=== PATIENT | female | born 1940 | race Caucasian/White ===

== ENCOUNTER → 2023-10-30 11:34 | Outpatient (REF) | payer MEDICARE, BC, SELFPAY | LOC: RAD 11:34 | PROVIDERS: ATTENDING PHYSICIAN Nurse Practitioner Family | DX: R06.02 Shortness of breath (principal); R09.89 Other specified symptoms and signs involving the circulatory and respiratory systems | CPT/HCPCS: 71046 ==

== ENCOUNTER → 2023-10-31 07:56 | Outpatient (REF) | payer MEDICARE, BC, SELFPAY ==
[2023-10-31 08:46] LABS: Urine Albumin Negative (Neg - Trace); Urine Bilirubin Negative (Negative); Urine Character Clear (Clear); Urine Color Yellow; Urine Glucose Negative (Negative); Urine Ketone Negative (Negative); Urine Leukocyte Negative (Negative); Urine Nitrite Negative (Negative); Urine Occult Blood Negative (Negative); Urine Urobilinogen Negative (Neg - 1+)
[2023-10-31 08:47] LABS: % Basophils 0.3 % (0-2); % Eosinophils 0.9 % (0-6); % Immature Granulocytes 0.4 % (0-0.5); % Lymphocytes 14.1 % (20.5-51.1); % Monocytes 7.7 % (1.7-9.3); % Neutrophils 76.6 % (42.2-75.2); Absolute Eosinophils 0.1 10^3/uL (0-0.7); Absolute Immature Granulocytes 0.1 10^3/uL (0-0.05); Absolute Lymphocytes 1.7 10^3/uL (1.2-3.4); Absolute Monocytes 0.9 10^3/uL (0.1-0.6); Absolute Neutrophils 9.1 10^3/uL (1.4-6.5); Hematocrit 33.8 % (37.0-47.0); Hemoglobin 10.7 g/dL (12.0-16.0); Mean Corp Hgb Conc. 31.7 g/dL (33.0-37.0); Mean Corpuscular Hgb 27.6 pg (27.0-31.0); Mean Corpuscular Volume 87.3 fL (81.0-99.0); Mean Platelet Volume 9.9 fL (7.4-10.4); Nucleated Red Blood Cells % 0 %; Platelet Count 335 10^3/uL (130-400); Red Blood Cell Count 3.87 10^6/uL (4.20-5.40); Red Cell Dist. Width 13.7 % (11.5-14.5); White Blood Cell Count 11.8 10^3/uL (4.8-10.8)
[2023-10-31 09:13] LABS: ALT (SGPT) 21 U/L (0-35); AST (SGOT) 30 U/L (14-36); Albumin 3.9 g/dl (3.5-5.0); Alkaline Phosphatase 103 U/L (38-126); Blood Urea Nitrogen 10 mg/dl (7-17); Calcium 9.5 mg/dl (8.4-10.2); Carbon Dioxide 28 mmol/L (22-30); Chloride 103 mmol/L (98-107); Glucose 100 mg/dl (70-99); HDL Cholesterol 63 mg/dl; Iron 46 ug/dl (37-170); LDL Cholesterol, Calculated 114 mg/dl; Potassium 3.9 mmol/L (3.5-5.1); Sodium 137 mmol/L (135-145); Total Bilirubin 0.8 mg/dl (0.2-1.3); Total Cholesterol 192 mg/dl (50-199); Total Protein 7.7 g/dl (6.3-8.2); Triglyceride 78 mg/dl (10-149); Very Low Density Lipoprotein 15 mg/dl (0-30); eGFR > 60.00
[2023-10-31 09:23] LABS: Percent Saturation 17 % (20-50); Total Iron Binding Capacity 261 ug/dl (265-497)
[2023-10-31 09:29] LABS: Vitamin D, 25-OH*** 46.1 ng/mL (30-80)
[2023-10-31 09:43] LABS: TSH Reflex To Free T4 1.42 uIU/ml (0.47-4.68)
[2023-10-31 12:13] LABS: Glycohemoglobin (HgbA1c) 6.1 % (4.0-5.6)
== END ==
LOC: REG 07:56
PROVIDERS: ATTENDING PHYSICIAN Nurse Practitioner Family
DX: R53.83 Other fatigue (principal); R73.01 Impaired fasting glucose; E78.2 Mixed hyperlipidemia; D64.9 Anemia, unspecified; E55.9 Vitamin D deficiency, unspecified; I36.1 Nonrheumatic tricuspid (valve) insufficiency
CPT/HCPCS: 36415; 80053; 80061; 81003; 82306; 82728; 83036; 83540; 83550; 84443; 85025

== ENCOUNTER → 2023-12-05 09:33 | Outpatient (REF) | payer MEDICARE, BC, SELFPAY | LOC: HWRAD 09:33 | PROVIDERS: ATTENDING PHYSICIAN Nurse Practitioner Family | DX: I27.20 Pulmonary hypertension, unspecified (principal); R63.4 Abnormal weight loss | CPT/HCPCS: 71270; 74178; Q9967 ==

== ENCOUNTER → 2023-12-09 11:52 | Outpatient (REF) | payer MEDICARE, BC, SELFPAY ==
[2023-12-09 13:18] LABS: Erythrocyte Sed Rate 80 mm/hour (0-20)
[2023-12-09 14:15] LABS: Folate > 20.0 ng/ml (2.76-20); Vitamin B12 > 1000 pg/ml (239-931)
[2023-12-11 14:25] LABS: Alpha 1 Globulin 0.61 g/dL (0.19-0.46); Alpha 2 Globulin 1.18 g/dL (0.48-1.05); Free Kappa Light Chains,Quant 51.84 mg/L (3.30-19.40); Free Lambda Light Chains,Quant 41.08 mg/L (5.71-26.30); IgA 366 mg/dL (68-408); IgG 2141 mg/dL (768-1632); IgM 177 mg/dL (35-263); Immunofixation Electrophoresis IFE Done; Kappa/Lambda Fr Light Ratio 1.26 (0.26-1.65)
== END ==
LOC: REG 11:52
PROVIDERS: ATTENDING PHYSICIAN Internal Medicine Critical Care Medicine; FAMILY PHYSICIAN Internal Medicine Geriatric Medicine; REFERRING PHYSICIAN Specialist
DX: R56.9 Unspecified convulsions (principal); J98.4 Other disorders of lung; J47.9 Bronchiectasis, uncomplicated; D59.9 Acquired hemolytic anemia, unspecified; D53.9 Nutritional anemia, unspecified
CPT/HCPCS: 36415; 82607; 82746; 82784; 83521; 84155; 84165; 85652; 86334; 87070; 87205

== ENCOUNTER → 2023-12-12 09:59 | Outpatient (REF) | payer MEDICARE, BC, SELFPAY | LOC: RAD 09:59 | PROVIDERS: ATTENDING PHYSICIAN Internal Medicine Critical Care Medicine; FAMILY PHYSICIAN Internal Medicine Geriatric Medicine | DX: J98.4 Other disorders of lung (principal); J47.9 Bronchiectasis, uncomplicated; R13.10 Dysphagia, unspecified | CPT/HCPCS: 74230; 92611 ==

== ENCOUNTER → 2023-12-24 13:15 | Outpatient (REF) | payer MEDICARE, BC, SELFPAY ==
[2023-12-24 13:50] LABS: % Basophils 0.7 % (0-2); % Eosinophils 2.9 % (0-6); % Immature Granulocytes 0.3 % (0-0.5); % Monocytes 8.7 % (1.7-9.3); % Neutrophils 66.4 % (42.2-75.2); Absolute Basophils 0.1 10^3/uL (0-0.2); Absolute Eosinophils 0.2 10^3/uL (0-0.7); Absolute Lymphocytes 1.4 10^3/uL (1.2-3.4); Absolute Monocytes 0.6 10^3/uL (0.1-0.6); Absolute Neutrophils 4.5 10^3/uL (1.4-6.5); Hematocrit 32.3 % (37.0-47.0); Mean Corpuscular Hgb 27.2 pg (27.0-31.0); Nucleated Red Blood Cells % 0 %; Platelet Count 312 10^3/uL (130-400); Red Blood Cell Count 3.67 10^6/uL (4.20-5.40); Red Cell Dist. Width 13.8 % (11.5-14.5); White Blood Cell Count 6.8 10^3/uL (4.8-10.8)
[2023-12-24 14:12] LABS: ALT (SGPT) 19 U/L (0-35); AST (SGOT) 32 U/L (14-36); Alkaline Phosphatase 88 U/L (38-126); Blood Urea Nitrogen 14 mg/dl (7-17); Calcium 9.5 mg/dl (8.4-10.2); Carbon Dioxide 28 mmol/L (22-30); Chloride 103 mmol/L (98-107); Glucose 92 mg/dl (70-99); Potassium 3.6 mmol/L (3.5-5.1); Sodium 137 mmol/L (135-145); Total Bilirubin 0.5 mg/dl (0.2-1.3); Total Protein 8.2 g/dl (6.3-8.2); eGFR > 60.00
== END ==
LOC: CATH 13:15
PROVIDERS: ATTENDING PHYSICIAN Internal Medicine Cardiovascular Disease; FAMILY PHYSICIAN Internal Medicine Geriatric Medicine; OTHER PHYSICIAN Internal Medicine Cardiovascular Disease
DX: I49.5 Sick sinus syndrome (principal); I47.10 Supraventricular tachycardia, unspecified; Z01.818 Encounter for other preprocedural examination
CPT/HCPCS: 36415; 80053; 85025; 93005

== ENCOUNTER 2023-12-31 08:52 | Day surgery (SDC) | payer MEDICARE, BC, SELFPAY ==
[2023-11-28 13:25] VITALS: BMI 15.1
[2023-12-24 13:24] VITALS: BMI 15.2
--- NOTE | 2023-12-24 14:24 | HPS.HSE ---
Family Physician
-
Family Physician: Vladimir Silver
Chief Complaint
-
Sick sinus syndrome. Supraventricular tachycardia.
History of Present Illness
The patient is an 83-year-old female presenting today for sick sinus syndrome. She initially had a pacemaker inserted secondary to this diagnosis in 2001 with a subsequent pacemaker generator change in 2011. She has a previous history of
supraventricular tachycardia on pacemaker checks. Her device was recently interrogated on November 06, 2023 and was noted to reach elective replacement indication. The patient at that visit reported that her device often caused irritation, especially
since it rubbed against her clavicle. She is noted to be extremely thin and even the muscle fibers of her deltoid and pectoralis can be seen through the skin. Her device upon examination today is protruding with a very thin layer of skin on top.
Given the thinning of her skin, the patient would prefer to undergo a pacemaker generator change with a pocket revision and relocation of her device to the subpectoral area. She was initially scheduled to undergo this procedure on 12/12/2023;
however, her procedure was cancelled due to recurrent, multifocal bilateral pneumonia. She was treated with liquid Amoxicillin per the recommendations of her baccarat dealer, Dr. Sander Graham. Today, her lungs are clear to auscultation throughout and
her vital signs are stable. She overall feels well and has remained afebrile. She denies any current complaints today such as chest pain, shortness of breath at rest, nausea, vomiting, diarrhea, lightheadedness, dizziness, sore throat, or fever.
Medical History
Past Medical History
Past Medical History: Reports Other
Additional Past Medical History:
1. Sick sinus syndrome, status post pacemaker insertion, 2001, and pacemaker generator change 2011.
2. Supraventricular tachycardia.
3. Hypercholesterolemia.
4. Moderate pulmonary hypertension.
5. Moderate to severe tricuspid regurgitation.
6. Mild to moderate mitral regurgitation.
7. Recurrent, multifocal, bilateral pneumonia per chest CT 12/06/2023, treated with Amoxicillin.
8. Bronchiectasis.
9. Post-operative pneumothorax after pacemaker insertion in 2001, requiring right thoracotomy.
10. Chronic dyspnea on exertion.
11. GERD.
12. Hiatal hernia.
13. Esophageal stricture with mild dysphagia.
14. History of H pylori gastritis, undergoing treatment 1999.
15. Diverticulosis.
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
17. Irritable bowel syndrome with diarrhea.
18. Anal fissure.
19. Right central retinal artery occlusion 2009.
20. Remote isolated seizure of unknown origin.
21. Peripheral neuropathy.
22. Multilevel degenerative disc disease.
23. Anemia of chronic disease.
24. Glaucoma.
25. Basal cell carcinoma, status post excision.
26. COVID-19, 08/2022, with residual dry cough.
27. Parvovirus 2003.
28. Prediabetes, A1c 6.1 11/03/2023.
29. Underweight, BMI 15.2.
Past Surgical History: Reports Other
Additional Past Surgical History:
1. Pacemaker insertion.
2. Pacemaker generator change.
3. Right thoracotomy.
4. Appendectomy.
5. Ovarian cystectomy.
6. Colonoscopy x2.
Social History
Tobacco: Non-smoker
Alcohol: Occasional
Living: Other (The patient lives in a 3-story home independently.)
Family History
Family History: Not pertinent
Allergies / Home Medications
Allergy/Medication List:
Home medications:
1. Align 4 mg p.o. daily.
2. Cholecalciferol 50 mcg p.o. every other day.
3. Dorzolamide 1 drop ophthalmic every evening.
4. Loperamide 2 mg p.o. daily.
5. Mecobalamin 2500 mcg p.o. daily.
6. Multivitamin 1 tab p.o. daily.
7. Omeprazole 20 mg p.o. daily.
8. Rosuvastatin 5 mg p.o. at bedtime.
9. Travoprost 1 drop ophthalmic every evening.
�
ALLERGIES: Codeine. Oxycodone. Ketoralac (per records). Kiwi.
Review of Systems
-
A 12 point ROS was completed and negative except as noted: Yes
Physical Exam
Vital Signs
Blood pressure 131/70. Heart rate 87. Respirations 18. Pulse ox 98% on room air.
Height 5 feet, 2 inches. Weight 37.7 kg. BMI 15.2.
Physical Exam
General: No Apparent Distress, Comfortable and Other (Frail appearing. Underweight. )
HEENT: NormoCephalic, Moist mucous membranes, Atraumatic and PERRLA
Respiratory: Clear and Non Labored Respirations
Cardiac: Regular Rhythm and Other (Pacemaker site intact but thin skin over site noted.)
GI: Soft, Non Tender and Non Distended
Musculoskeletal: Normal Gait & Station
Skin: Warm and Dry
Neuro: AO x 3 and Nonfocal/grossly intact
Laboratory Results
-
DIAGNOSTIC STUDIES as of 12/24/2023: White blood cell count 6.8. Hemoglobin 10.0. Platelet count 312,000. Sodium 137. Potassium 3.6. BUN 14. Creatinine 0.5. Glucose 92. Calcium 9.5. AST 32. ALT 19. Albumin 4.0.
EKG 12/24/2023: Normal sinus rhythm. Low- voltage QRS. Septal infarct. Compared to the prior EKG of 11/28/2023, no significant change was found.
Echocardiogram 10/22/2023 - Ejection fraction is 60-65 percent. Mild to moderate mitral regurgitation. Moderate to severe tricuspid regurgitation with moderate pulmonary hypertension. Compared to the previous echocardiogram of 04/12/2022, mitral
regurgitation has increased from mild to [id number].
�
Impression/Plan
-
IMPRESSION/PLAN:�
1. Sick sinus syndrome and supraventricular tachycardia: The patient is in need of a pacemaker generator change with pocket revision and relocation to the subpectoral area with Dr. Uvaldo Carrasco on 12/31/2023. The benefits and risks of the procedure
have been explained to the patient. The patient understands these risks and wishes to proceed.
[2023-12-31] VITALS (13 sets, daily range): BP systolic 127–179; BP diastolic 65–86; BMI 15.2
--- NOTE | 2023-12-31 13:57 | ITS.CL.PACE ---
[employer] - Pacemaker Implant
Pacemaker Implant
Procedure Report:
Implantable Dual Chamber Pacemaker Generator Change:
Ms. Willis is a very pleasant 83 years old woman with history of sick sinus syndrome s/p dual chamber PPM on 01/18/2012 withcapped old RV lead and oversown atrial lead with end of battery is here for generator change. She has thin physique and the
device is protruding risking skin erosion and is planned to move the device to subpectoral location.
Indications: Sick sinus syndrome
Date of the Procedure: 12/31/2023
Pre-Operative Diagnosis: Sick sinus syndrome
Post-Operative Diagnosis: Sick sinus syndrome
Procedure Performed: DUAL CHAMBER PACEMAKER GENERATOR CHANGE and POCKET RELOCATION
Performing Physician:
Uvaldo Carrasco MD
Anesthesia:
See anesthesia records
Detailed Description of the Procedure:
The patient was identified using hospital identification and informed consent obtained for the procedure. The risks were explained including, but not limited to: Bleeding, infection, arrhythmia, stroke, vascular/cardiac/lung puncture, surgery,
pacemaker dependency/device malfunction. All questions were answered.
The patient was brought to the electrophysiology laboratory in stable condition in fasting state. Continuous electrocardiographic and hemodynamic monitoring was initiated.
The initial rhythm was normal sinus rhythm.
The procedure site was meticulously prepared with surgical scrub and allowed to dry with no pooling. Sterile draping was applied to cover the procedure site. The image intensifier was draped with sterile bag and positioned over the patient.
The left infraclavicular region was prepped and draped in the usual sterile fashion. Local anesthesia was administered subcutaneously using 1% lidocaine / bupivacaine. The incision was made on delto pectoral groove. The old PPM generator was
accessed and the adhesions were removed with care to avoid damage to the leads. The PPM capsule was cut to access the generator. The old device was freed from the underlying fascia. It was removed from the body. The Weitlaner retractor was placed in
the incision and used as access to skin for unipolar pacing.
The RA pacing lead was first removed and plugged into the new generator. Then the RV lead was removed and placed in the respective locations in the newer generator.
Pocket relocation:
Then the delto-pectoral groove was dissected and the lateral margin of the pectoralis major muscle was identified. A pocket was created under the pec major muscle.
The new generator was placed in the new pocket and was anchored to the fascia.
The abandoned leads were not moved and the functional leads were released from the adhesions and the generator was placed in the newly formed sub-pectoralis pocket. There was excellent sensing, pacing, and impedance from the leads.�Bovie cautery,
and antibiotics were used.
The wound was irrigated thoroughly with antibiotic solution and closed in 3 layers using 2-0 Vloc and two layers of 4-0 V loc sutures. Steri-Strips and a bandage were applied externally.�
Procedure End:
The procedure was tolerated well.
Estimated Blood loss:
5 cc
Fluoro time:
0 min
Specimens Removed:
No cultures and no specimens were obtained. No intraoperative pathology was identified.
Urine output:
None
Packs / Drains/ Tubes:
None
Instrument / Sponge Count Correct:
Yes
Complications of the Procedure:
None
Condition of Patient at Time of Transfer:
Hemodynamically stable with no neurological or vascular compromise.
Device information:�
Generator: [employer] / [employer]; Model: AllPeers MRI 2272; Serial # [id number]�
����������� Atrial Lead: [employer]; Model# 2088TC/46; Serial#: [id number]. ([facility] 01/18/2012)
����������������������� Measured data in the right atrium was sensing of 1.2 mV waves of atrial fibrillation with an impedance of 310ohms and threshold of 0.75 V at 0.4ms.
����������� RV Lead: [employer]; Model# 2088TC/52; Serial#: [id number]. ([facility] 01/18/2012)
����������������������� Measured data on the RV lead was sensing of 8.8 mV; impedance of 410ohms and threshold of 0.75 V at 0.4ms.
Capped and not reusable leads
RA Lead: [employer]onic; Model# 5076cm; Serial#: [id number] (imp:09/02/2002).
RV Lead: [employer]; Model# 5076cm; Serial#: [id number]. (imp:09/02/2002)
�����������
The abandoned Medtronic atrial lead is known to have been oversewn at the time of a thoracotomy to deal with perforation. This abandoned atrial lead perhaps may only be extractable at the time of an open procedure. It would be difficult to imagine
an endovascular extraction of this lead without high risk of avulsion and perforation of the atrium.
Explanted device:
Pulse Generator: [employer]; Model# TL8920; Serial#: [id number]. (implanted: 01/18/2012)
PROGRAMMING PARAMETERS:�
Gasper parameter settings were DDDR (60 - 120 )
�����������
����������� �
Summary:
Successful generator change of dual chamber pacemaker and relocation of pocket to sub-pectoral location.
Results/Recommendations:
1. Please provide patient with adequate pain control�
Instructions to be given to patient:�
- Please follow up with [facility] at [address] [place] [address] ([phone]) to get your wound checked within 7 days of your discharge.
- Do not wet incision site until after it is evaluated at cardiology clinic. No showers until then. Sponge baths are OK.�
- Allow 'steri strips' to fall off on their own�
- Do not lift left elbow above shoulder, particularly with sudden jerking movements, for 1 month�
- Do not lift anything weighing more than 5 pounds with the left arm for 1 month�
- If you notice any fevers, shortness of breath, lightheadedness, chest pain, or worsening swelling in the wound site, please contact the arrhythmia clinic, contact your [employer] founder, or present to the hospital for evaluation.�
vUaldo Carrasco MD
Electrophysiology
[2023-12-31] MEDS: TYLENOL 650 MG PO (15:26)
--- NOTE | 2023-12-31 15:26 | PTCARENOTE ---
650 mg tylenol given as per Myla MARTINEZ for mild left upper chest achiness at procedure site, will reassess BP
--- NOTE | 2023-12-31 16:00 | PTCARENOTE ---
SBP remains in the 170s, Ellie MARTINEZ aware and in communication with DR Carrasco
[2023-12-31] MEDS: APRESOLINE 5 MG IV (16:10)
--- NOTE | 2023-12-31 16:10 | PTCARENOTE ---
Hydralazine 5 mg IV given as ordered
--- NOTE | 2023-12-31 16:23 | PTCARENOTE ---
BP 127/65, left upper chest achiness now rated 1/10, Ellie MARTINEZ updated and verified to proceed with discharge, pt and daughters agreeable
--- NOTE | 2023-12-31 16:37 | PTCARENOTE ---
Pt's SBP trending 160-170s all day. Daughters at bedside concerned since the pt's SBP norm is 100-130. Pt denies any pain or other symptoms. Spoke with Myla MARTINEZ who will evaluate pt and BP trending.
== END 2023-12-31 16:35 | disposition home or self-care (01) ==
LOC: CATH 08:52
PROVIDERS: ATTENDING PHYSICIAN Internal Medicine Cardiovascular Disease; FAMILY PHYSICIAN Internal Medicine Geriatric Medicine; OTHER PHYSICIAN Internal Medicine Cardiovascular Disease
DX: Z45.010 Encounter for checking and testing of cardiac pacemaker pulse generator [battery] (principal); I49.5 Sick sinus syndrome; I47.10 Supraventricular tachycardia, unspecified; E78.00 Pure hypercholesterolemia, unspecified; I27.20 Pulmonary hypertension, unspecified; I08.1 Rheumatic disorders of both mitral and tricuspid valves; Z87.01 Personal history of pneumonia (recurrent); K21.9 Gastro-esophageal reflux disease without esophagitis; K44.9 Diaphragmatic hernia without obstruction or gangrene; K22.2 Esophageal obstruction; Z86.19 Personal history of other infectious and parasitic diseases; K57.90 Diverticulosis of intestine, part unspecified, without perforation or abscess without bleeding; K58.0 Irritable bowel syndrome with diarrhea; K60.2 Anal fissure, unspecified; D63.8 Anemia in other chronic diseases classified elsewhere; Z86.16 Personal history of COVID-19; Z85.828 Personal history of other malignant neoplasm of skin; H40.9 Unspecified glaucoma; R63.6 Underweight; Z68.1 Body mass index [BMI] 19.9 or less, adult; R73.03 Prediabetes; G62.9 Polyneuropathy, unspecified
CPT/HCPCS: 33228; C1785

== ENCOUNTER → 2024-01-30 16:04 | Outpatient (REF) | payer MEDICARE, BC, SELFPAY | LOC: REG 16:04 | PROVIDERS: ATTENDING PHYSICIAN Internal Medicine Gastroenterology; FAMILY PHYSICIAN Internal Medicine Geriatric Medicine | DX: R19.7 Diarrhea, unspecified (principal) | CPT/HCPCS: 74018 ==

== ENCOUNTER → 2024-02-03 13:19 | Outpatient (REF) | payer MEDICARE, BC, SELFPAY ==
[2024-02-03 15:24] LABS: IgA 357 mg/dl (70-400)
[2024-02-05 15:59] LABS: tTG IgG Antibody 67.9 EU/ml (0-19)
[2024-02-05 23:16] LABS: Fat, Fecal - Neutral Normal (Normal); Fat, Fecal - Split Normal (Normal)
[2024-02-06 00:56] LABS: Endomysial IgA Antibody Titer <1:10 (<1:10)
== END ==
LOC: REG 13:19
PROVIDERS: ATTENDING PHYSICIAN Internal Medicine Gastroenterology; FAMILY PHYSICIAN Internal Medicine Geriatric Medicine
DX: R19.7 Diarrhea, unspecified (principal)
CPT/HCPCS: 36415; 82653; 82705; 82784; 83516; 83993; 86231; 87045; 87046; 87077; 87427; 89055

== ENCOUNTER → 2024-02-12 15:07 | Outpatient (REF) | payer MEDICARE, BC, SELFPAY | LOC: RAD 15:07 | PROVIDERS: ATTENDING PHYSICIAN Nurse Practitioner Family | DX: Z87.01 Personal history of pneumonia (recurrent) (principal) | CPT/HCPCS: 71046 ==

== ENCOUNTER 2024-02-18 06:12 | Day surgery (SDC) | payer MEDICARE, BC, SELFPAY ==
[2024-02-18 08:19] VITALS: BMI 14.2
[2024-02-18 08:20] VITALS: BP 150/101
[2024-02-18 10:21] VITALS: BP 154/76
[2024-02-18 10:30] VITALS: BP 128/84
[2024-02-18 10:41] VITALS: BP 103/90
== END 2024-02-18 10:50 | disposition home or self-care (01) ==
LOC: GI 06:12
PROVIDERS: ATTENDING PHYSICIAN Internal Medicine Gastroenterology
DX: R13.10 Dysphagia, unspecified (principal); K44.9 Diaphragmatic hernia without obstruction or gangrene; K22.89 Other specified disease of esophagus; K29.50 Unspecified chronic gastritis without bleeding; D50.9 Iron deficiency anemia, unspecified; R63.4 Abnormal weight loss; K57.30 Diverticulosis of large intestine without perforation or abscess without bleeding; D12.8 Benign neoplasm of rectum
CPT/HCPCS: 45380; 43239; 88305; 88342

== ENCOUNTER → 2024-04-13 06:35 | Day surgery (SDC) | payer MEDICARE, BC, SELFPAY | LOC: GI 06:35 | PROVIDERS: ATTENDING PHYSICIAN Internal Medicine Gastroenterology; FAMILY PHYSICIAN Internal Medicine Geriatric Medicine | DX: D50.9 Iron deficiency anemia, unspecified (principal); K44.9 Diaphragmatic hernia without obstruction or gangrene | CPT/HCPCS: 43235 ==

== ENCOUNTER → 2024-08-25 13:34 | Outpatient (REF) | payer MEDICARE, BC, SELFPAY | LOC: WDC 13:34 | PROVIDERS: ATTENDING PHYSICIAN Internal Medicine Geriatric Medicine | DX: Z12.39 Encounter for other screening for malignant neoplasm of breast (principal); Z12.31 Encounter for screening mammogram for malignant neoplasm of breast | CPT/HCPCS: 77063; 77067 ==

== ENCOUNTER → 2024-09-08 10:02 | Outpatient (REF) | payer MEDICARE, BC, SELFPAY ==
[2024-09-08 10:44] LABS: Urine Albumin Negative (Neg - Trace); Urine Bilirubin Negative (Negative); Urine Character Clear (Clear); Urine Color Yellow; Urine Glucose Negative (Negative); Urine Ketone Negative (Negative); Urine Leukocyte Trace (Negative); Urine Nitrite Negative (Negative); Urine Occult Blood Negative (Negative); Urine Urobilinogen Negative (Neg - 1+)
[2024-09-08 10:45] LABS: % Basophils 0.9 % (0-2); % Immature Granulocytes 0.4 % (0-0.5); % Lymphocytes 29.6 % (20.5-51.1); % Monocytes 8.2 % (1.7-9.3); % Neutrophils 57.9 % (42.2-75.2); Absolute Basophils 0.1 10^3/uL (0-0.2); Absolute Eosinophils 0.2 10^3/uL (0-0.7); Absolute Lymphocytes 1.7 10^3/uL (1.2-3.4); Absolute Monocytes 0.5 10^3/uL (0.1-0.6); Absolute Neutrophils 3.3 10^3/uL (1.4-6.5); Hemoglobin 12.3 g/dL (12.0-16.0); Mean Corp Hgb Conc. 33.2 g/dL (33.0-37.0); Mean Corpuscular Hgb 30.5 pg (27.0-31.0); Mean Corpuscular Volume 91.8 fL (81.0-99.0); Mean Platelet Volume 10.1 fL (7.4-10.4); Nucleated Red Blood Cells % 0 %; Platelet Count 199 10^3/uL (130-400); Red Blood Cell Count 4.03 10^6/uL (4.20-5.40); Red Cell Dist. Width 12.6 % (11.5-14.5); White Blood Cell Count 5.7 10^3/uL (4.8-10.8)
[2024-09-08 11:06] LABS: Erythrocyte Sed Rate 46 mm/hour (0-20)
[2024-09-08 11:18] LABS: ALT (SGPT) 37 U/L (0-35); AST (SGOT) 44 U/L (14-36); Albumin 4.6 g/dl (3.5-5.0); Alkaline Phosphatase 95 U/L (38-126); Blood Urea Nitrogen 14 mg/dl (7-17); Calcium 9.6 mg/dl (8.4-10.2); Carbon Dioxide 29 mmol/L (22-30); Chloride 104 mmol/L (98-107); Glucose 92 mg/dl (70-99); HDL Cholesterol 97 mg/dl; Iron 107 ug/dl (37-170); LDL Cholesterol, Calculated 109 mg/dl; Sodium 143 mmol/L (135-145); Total Bilirubin 0.7 mg/dl (0.2-1.3); Total Cholesterol 218 mg/dl (50-199); Total Protein 8.4 g/dl (6.3-8.2); Triglyceride 61 mg/dl (10-149); Very Low Density Lipoprotein 12 mg/dl (0-30); eGFR > 60.00
[2024-09-08 11:28] LABS: Percent Saturation 34 % (20-50); Total Iron Binding Capacity 312 ug/dl (265-497)
[2024-09-08 11:36] LABS: Free T4 1.26 ng/dl (0.78-2.19)
[2024-09-08 11:56] LABS: Urine Amorphous Seen; Urine Mucus Few
[2024-09-08 11:57] LABS: Urine Red Blood Cell 0-2 /HPF (0-2)
== END ==
LOC: REG 10:02
PROVIDERS: ATTENDING PHYSICIAN Internal Medicine Geriatric Medicine; OTHER PHYSICIAN Internal Medicine Cardiovascular Disease
DX: I10 Essential (primary) hypertension (principal); E78.2 Mixed hyperlipidemia; I49.5 Sick sinus syndrome; K21.9 Gastro-esophageal reflux disease without esophagitis; E03.9 Hypothyroidism, unspecified; E55.9 Vitamin D deficiency, unspecified; D64.9 Anemia, unspecified; D47.2 Monoclonal gammopathy; Z79.899 Other long term (current) drug therapy
CPT/HCPCS: 36415; 80053; 80061; 81003; 81015; 82306; 82784; 83521; 83540; 83550; 84155; 84165; 84439; 84443; 85025; 85652; 86334

== ENCOUNTER → 2024-10-12 12:34 | Outpatient (REF) | payer MEDICARE, BC, SELFPAY ==
[2024-10-12 14:58] LABS: ALT (SGPT) 24 U/L (0-35); AST (SGOT) 35 U/L (14-36)
== END ==
LOC: REG 12:34
PROVIDERS: ATTENDING PHYSICIAN Internal Medicine Geriatric Medicine
DX: R74.8 Abnormal levels of other serum enzymes (principal)
CPT/HCPCS: 36415; 84450; 84460

== ENCOUNTER → 2025-05-12 12:11 | Outpatient (REF) | payer MEDICARE, BC, SELFPAY | LOC: RCS 12:11 | PROVIDERS: ATTENDING PHYSICIAN Internal Medicine Cardiovascular Disease; FAMILY PHYSICIAN Internal Medicine Geriatric Medicine | DX: I49.5 Sick sinus syndrome (principal); I36.1 Nonrheumatic tricuspid (valve) insufficiency | CPT/HCPCS: 93306 ==

== ENCOUNTER → 2025-07-26 09:51 | Outpatient (REF) | payer MEDICARE, BC, SELFPAY ==
[2025-07-26 11:19] LABS: Hematocrit 39.2 % (37.0-47.0); Hemoglobin 12.6 g/dL (12.0-16.0); Mean Corp Hgb Conc. 32.1 g/dL (33.0-37.0); Mean Corpuscular Volume 94.2 fL (81.0-99.0); Nucleated Red Blood Cells % 0 %; Platelet Count 203 10^3/uL (130-400); Red Cell Dist. Width 12.7 % (11.5-14.5)
== END ==
LOC: REG 09:51
PROVIDERS: ATTENDING PHYSICIAN Internal Medicine Geriatric Medicine
DX: I49.5 Sick sinus syndrome (principal); I27.20 Pulmonary hypertension, unspecified; J47.9 Bronchiectasis, uncomplicated; E78.2 Mixed hyperlipidemia; I10 Essential (primary) hypertension; K21.9 Gastro-esophageal reflux disease without esophagitis; E03.9 Hypothyroidism, unspecified; E55.9 Vitamin D deficiency, unspecified; D64.9 Anemia, unspecified; Z13.31 Encounter for screening for depression; Z23 Encounter for immunization
CPT/HCPCS: 36415; 85025

== ENCOUNTER → 2025-07-28 10:57 | Outpatient (REF) | payer MEDICARE, BC, SELFPAY | LOC: REG 10:57 | PROVIDERS: ATTENDING PHYSICIAN Internal Medicine Geriatric Medicine | DX: Z88.9 Allergy status to unspecified drugs, medicaments and biological substances (principal); H04.209 Unspecified epiphora, unspecified side; J98.4 Other disorders of lung; D80.9 Immunodeficiency with predominantly antibody defects, unspecified | CPT/HCPCS: 36415; 82785 ==